=== PATIENT | male | born 1990 | race Caucasian/White ===

== ENCOUNTER 2019-07-09 20:48 | Emergency (ER) | payer OTHER ==
[~2019-07-09] VITALS: Ht 172.7 cm; Wt 76.2 kg
[2019-07-09 20:51] VITALS: BP_SYST 147
--- NOTE | 2019-07-09 21:02 | NUR ---
Pt placed to ER bed 02, to gown, to environmental monitoring specialist. Pt report given to LUIS Dorsey.
--- NOTE | 2019-07-09 21:10 | NUR ---
Pt presents to ER with c/o chest pain. Pt A&Ox4. Pt states he is currently in school with increased stress. Pt states he was "not feeling himself" 1 week ago and went to primary doctor. Pt states he was diagnosed with anxiety and prescribed buspirone. Pt states he began having similar signs and symptoms and took 1 tablet of buspirone for the first time today 1 hour ago. Pt states he began having chest pressure in upper left chest and pain after taking Buspirone. Pt states pain 4/10 and states it does not radiate anywhere. Pt states he began to get SOB and "could not breath out of nose." Pt states he also is nauseated but no vomiting. Pt lung sounds clear bilaterally with no use of accessory muscles. Pt oxygen saturation on room air is 98%. Will continue to monitor.
--- NOTE | 2019-07-09 21:15 | NUR ---
# 18 gauge angiocath placed to R AC. Use of asceptic technique. Opsite placed over site. Blood return noted. Blood for lab drawn from site. Flushed with 10 cc of normal saline. No evidence of infiltration noted. Patient tolerated well.
--- NOTE | 2019-07-09 21:23 | NUR ---
ER Dr. Bethea at bedside examining patient.
[2019-07-09 21:38] LABS: BASOPHILS % (AUTO) 0.5 % (0.0-2.0); EOSINOPHILS # (AUTO) 0.2 K/uL (0.0-0.4); EOSINOPHILS % (AUTO) 2.4 % (0.0-4.0); HEMATOCRIT 44.3 % (36-54); HEMOGLOBIN 14.6 g/dL (14.0-18.0); LYMPHOCYTES # (AUTO) 3.3 K/uL (1.0-5.5); LYMPHOCYTES % (AUTO) 41.7 % (20.5-51.5); MEAN CORPUSCULAR HEMOGLOBIN 29 pg (27-31); MEAN CORPUSCULAR HGB CONC 33 % (32-36); MEAN CORPUSCULAR VOLUME 87 fL (79.0-98.0); MONOCYTES # (AUTO) 0.6 K/uL (0.0-1.0); MONOCYTES % (AUTO) 7.8 % (1.7-9.3); NEUTROPHILS # (AUTO) 3.8 K/uL (1.8-7.7); NEUTROPHILS % (AUTO) 47.6 % (40.0-70.0); PLATELET COUNT (AUTO) 274 K/uL (130-430); RED BLOOD CELL COUNT(AUTO) 5.08 MIL/uL (4.2-6.2); RED CELL DISTRIBUTION WIDTH 14.2 % (9.0-15.0)
[2019-07-09 21:46] LABS: CALCIUM 8.6 mg/dL (8.4-11.0); CREATININE 0.99 mg/dL (0.55-1.30); POTASSIUM 3.5 mmol/L (3.5-5.1)
[2019-07-09 21:47] LABS: BILIRUBIN,URINE NEGATIVE (NEGATIVE); BLOOD, URINE NEGATIVE (NEGATIVE); CLARITY/URINE CLEAR (CLEAR); GLUCOSE,URINE NEGATIVE (NEGATIVE); KETONES,URINE NEGATIVE (NEGATIVE); LEUKOCYTE ESTERASE ,URINE NEGATIVE (NEGATIVE); NITRITE, URINE NEGATIVE (NEGATIVE); PROTEIN URINE NEGATIVE (NEGATIVE); UROBILINOGEN,URINE 0.2 (0.2-1.0)
[2019-07-09 21:50] LABS: COLOR,URINE STRAW (YELLOW)
[2019-07-09 21:51] LABS: TOTAL BILIRUBIN 0.7 mg/dL (0.0-1.0)
--- NOTE | 2019-07-09 21:52 | NUR ---
Radiology at bedside.
[2019-07-09 21:59] LABS: BARBITURATE, URINE NEGATIVE (NEG <=200); BENZODIAZEPINE, URINE NEGATIVE (NEG <=150); CANNABINOID, URINE NEGATIVE (NEG <=50); COCAINE, URINE NEGATIVE (NEG <=150); METHAMPHETAMINES SCREEN,URINE NEGATIVE (NEG <=500); OPIATE, URINE NEGATIVE (NEG <=100); PHENCYCLIDINE SCREEN,URINE NEGATIVE (NEG <=25); UR TRICYCLIC ANTIDEPRESSANTS NEGATIVE (NEG <=300); URINE AMPHETAMINE NEGATIVE (NEG <=500); URINE METHADONE NEGATIVE (NEG <=200); URINE OXYCODONE SCREEN NEGATIVE (NEG <=100); URINE PROPOXYPHENE SCREEN NEGATIVE (NEG <=300)
[2019-07-09 22:53] VITALS: BP_SYST 140
--- NOTE | 2019-07-09 22:53 | NUR ---
Patient given written and verbal discharge instructions and verbalizes understanding. ER MD Bethea discussed with patient the results and treatment provided. Patient in stable condition. ID arm band removed. IV catheter removed intact and dressing applied, no active bleeding. No Rx given. Patient educated on pain management and to follow up with PMD. Pain Scale 0/10. Opportunity for questions provided and answered. Medication side effect fact sheet provided.
== END 2019-07-09 22:53 | disposition home or self-care (01) ==
LOC: SED 20:48
DX: R07.89 Other chest pain (principal); F41.9 Anxiety disorder, unspecified
CPT/HCPCS: 36415; 71045; 80053; 80307; 81003; 84484; 85025; 93005; 99284

== ENCOUNTER 2022-09-15 03:16 | Emergency (ER) | payer OTHER ==
[~2022-09-15] VITALS: Ht 172.7 cm; Wt 81.6 kg
[2022-09-15 03:30] VITALS: BP_SYST 126
--- NOTE | 2022-09-15 03:30 | NUR ---
Patient to ER bed 8 to gown for evaluation. Side rails up.
--- NOTE | 2022-09-15 03:34 | NUR ---
ER at bedside examining patient.
[2022-09-15] MEDS ORDERED: ACETAMINOPHEN 500 MG TABLET PO ONE (03:45)
[2022-09-15] MEDS ORDERED: IBUPROFEN 600 MG TABLET PO ONE (03:45)
[2022-09-15] MEDS ORDERED: ONDANSETRON 4 MG ODT TAB PO ONE (03:45)
--- NOTE | 2022-09-15 03:48 | NUR ---
Report given to Jairon gould.
--- NOTE | 2022-09-15 03:50 | NUR ---
PT BIB FAMILY MEMBER FROM HOME, AMBULATED TO BED 8. PT A&Ox4, ABLE TO MAKE NEEDS KNOWN. PT C/O LEFT SHOULDER PAIN SINCE 99. PT STATES PAIN WOKE HIM UP FROM HIS SLEEP. PT RATES PAIN 12/21. PT DENIES INJURY. PT DENIES TAKING MEDICATION FOR THE PAIN. PT STATES HE HAS BEEN NAUSEOUS. PT DENIES V/D. PT DENIES SOB. PT DENIES FEVER/CHILLS. SAFETY MEASURES IN PLACE.
[2022-09-15 04:55] VITALS: BP_SYST 120
--- NOTE | 2022-09-15 04:56 | NUR ---
Patient given written and verbal discharge instructions and verbalizes understanding. ER DR JONAS discussed with patient the results and treatment provided. Patient in stable condition. ID arm band removed. Patient educated on pain management and to follow up with PMD. Pain Scale 1/10. Opportunity for questions provided and answered. Medication side effect fact sheet provided.
== END 2022-09-15 04:55 | disposition home or self-care (01) ==
LOC: SED 03:16
DX: R07.89 Other chest pain (principal); M25.512 Pain in left shoulder; R05.9 Cough, unspecified; R11.0 Nausea; Z79.899 Other long term (current) drug therapy
CPT/HCPCS: 99284; 71045; 73030; Q0162

== ENCOUNTER 2023-06-11 20:52 | Emergency (ER) | payer OTHER ==
[~2023-06-11] VITALS: Ht 172.7 cm; Wt 79.4 kg
[2023-06-11 21:05] VITALS: BP_SYST 129; PULSE 68; RESP 19; TEMP 97.6; O2SAT 98
[2023-06-11 23:05] VITALS: BP_SYST 129; PULSE 68; RESP 19; TEMP 97.6; O2SAT 98
== END 2023-06-11 23:05 | disposition home or self-care (01) ==
LOC: SED 20:52
DX: S93.401A Sprain of unspecified ligament of right ankle, initial encounter (principal); Z79.899 Other long term (current) drug therapy; W18.40XA Slipping, tripping and stumbling without falling, unspecified, initial encounter; Y93.89 Activity, other specified; Y92.89 Other specified places as the place of occurrence of the external cause; Y99.8 Other external cause status
CPT/HCPCS: 99283

== ENCOUNTER 2024-02-16 20:05 | Emergency (ER) | payer OTHER ==
[~2024-02-16] VITALS: Ht 172.7 cm; Wt 79.4 kg
[2024-02-16 20:18] VITALS: BP_SYST 129; PULSE 64; RESP 19; TEMP 97.8; O2SAT 98
[2024-02-16] MEDS ORDERED: FAMO40TA7 PO (21:36)
[2024-02-16] MEDS: FAMOTIDINE 20 MG TABLET PO ONE (21:41)
[2024-02-16 21:43] VITALS: BP_SYST 129; PULSE 64; RESP 19; TEMP 97.8; O2SAT 98
== END 2024-02-16 21:41 | disposition home or self-care (01) ==
LOC: SED 20:05
DX: K20.80 Other esophagitis without bleeding (principal); Z79.899 Other long term (current) drug therapy
CPT/HCPCS: 70360; 99283